=== PATIENT | female | born 1980 | race Caucasian/White ===

== ENCOUNTER 2021-02-09 08:22 | Outpatient (CLI) | payer OTHER, SELFPAY ==
[2021-02-09 09:08] LABS: Basophils Percent Auto 0.4 % (0.2-1.2); Eosinophils Absolute Auto 0.1 K/mm3 (0-0.3); Eosinophils Percent Auto 1.8 % (0-4.4); Hematocrit 39.4 % (37.0-47.0); Hemoglobin 12.8 g/dL (12.0-15.0); Immature Granulocyte Absolute 0.02 K/mm3 (0.00-0.031); Immature Granulocyte Percent A 0.4 % (0-0.5); Lymphocytes Absolute Auto 1.32 K/mm3 (0.9-3.2); Lymphocytes Percent Auto 26.1 % (18.3-44.2); Mean Corpuscular HGB Conc 32.5 g/dl (32-36); Mean Corpuscular Hemoglobin 28.6 pg (26-34); Mean Corpuscular Volume 88.1 fl (80-100); Mean Platelet Volume 10.4 fl (7.4-10.4); Monocytes Absolute Auto 0.5 K/mm3 (0.1-0.6); Monocytes Percent Auto 9.9 % (2.6-8.5); Neutrophils Absolute Auto 3.1 K/mm3 (1.3-6.7); Neutrophils Percent Auto 61.4 % (45.5-73.1); Platelet Count Result 206 k/mm3 (150-375); Red Blood Count 4.47 M/mm3 (4.2-5.4); Red Cell Distribution Width 12.7 % (11.5-14.5); White Blood Count 5.1 K/mm3 (4.5-10.0)
[2021-02-09 09:22] LABS: Anion Gap 7 mmol/L (8-16); Blood Urea Nitrogen 9 mg/dL (7-17); Calcium 9.3 mg/dL (8.4-10.2); Carbon Dioxide 27 mmol/L (22-30); Chloride 105 mmol/L (98-107); Cholesterol 163 mg/dL (0-200); Estimated Glomerular Filt Rate > 60; Glucose 91 mg/dL (65-110); HDL Direct 46 mg/dL; Sodium 139 mmol/L (137-145); Triglycerides 125 mg/dL (<150)
[2021-02-09 09:33] LABS: LDL Cholesterol Direct 68 mg/dL
== END 2021-02-09 08:23 | disposition home or self-care (01) ==
LOC: ANHLAB 08:24
PROVIDERS: PCP Family Medicine; Visit Provider Physician Assistant Medical
DX: R00.2 Palpitations (principal); Z13.220 Encounter for screening for lipoid disorders; Z13.1 Encounter for screening for diabetes mellitus
CPT/HCPCS: 36415; 80048; 80061; 84443; 85025

== ENCOUNTER 2022-05-12 17:32 | Outpatient (CLI) | payer OTHER, SELFPAY ==
[2022-05-12 18:27] LABS: Anion Gap 12 mmol/L (8-16); Blood Urea Nitrogen 8 mg/dL (7-17); Calcium 9.6 mg/dL (8.4-10.2); Carbon Dioxide 28 mmol/L (22-30); Chloride 99 mmol/L (98-107); Cholesterol 171 mg/dL (0-200); Estimated Glomerular Filt Rate > 60; Glucose 93 mg/dL (65-110); HDL Direct 57 mg/dL; Potassium 3.6 mmol/L (3.4-5.0); Sodium 139 mmol/L (137-145); Triglycerides 92 mg/dL (<150)
[2022-05-12 18:37] LABS: LDL Cholesterol Direct 77 mg/dL
[2022-05-12 20:20] LABS: Appearance Urine Clear (Clear); Bilirubin Urine Negative (Negative); Blood Urine Trace-intact (Negative); Color Urine Yellow (Yellow); Glucose Urine UA Negative (Negative); Ketones Urine Negative (Negative); Leukocyte Esterase Ur Negative LEU/UL (Negative); Nitrate Urine Negative (Negative); Protein Urine Negative (Negative); Urobilinogen Urine 0.2 mg/dL (<2.0)
[2022-05-12 20:29] LABS: Mucus Urine Rare /lpf; RBC Urine 0-2 /hpf (0-2); WBC Urine 0-3 /hpf
[2022-05-12 20:31] LABS: Add Urine Microscopic? YES
[2022-05-13 14:47] LABS: Rapid Plasma Reagin Non-Reactive (NonReactive)
== END 2022-05-12 17:33 | disposition home or self-care (01) ==
LOC: ANHLAB 17:33
PROVIDERS: PCP Family Medicine; Visit Provider Nurse Practitioner Family
DX: Z13.220 Encounter for screening for lipoid disorders (principal); Z13.1 Encounter for screening for diabetes mellitus; N89.8 Other specified noninflammatory disorders of vagina; Z13.29 Encounter for screening for other suspected endocrine disorder
CPT/HCPCS: 36415; 80048; 80061; 81001; 84443; 86592; 87491; 87591; 87661

== ENCOUNTER 2022-10-01 15:29 | Outpatient (CLI) | payer OTHER, SELFPAY ==
--- NOTE | ~2022-10-01 | US_ITS ---
EXAMINATION: US abdomen complete DATE: 10/01/2022 16:23 INDICATION: Intra-abdominal and pelvic swelling. TECHNIQUE: Multiple grayscale and Doppler ultrasound images of the abdomen were obtained. COMPARISON: None FINDINGS: Abdominal aorta is normal in caliber. Inferior vena cava is normal. The visualized portions of the head, body, and tail of the pancreas are normal. The liver is normal without focal lesion. Th ere is normal flow in main portal vein. The gallbladder is absent. The common duct is normal and juliette ures 6 mm. The kidneys are normal in size. The spleen is normal in size. IMPRESSION: 1. Normal complete abdomen ultrasound status post cholecystectomy. Reviewed, dictated and finalized at location A.
--- NOTE | ~2022-10-01 | US_ITS ---
EXAMINATION: US soft tissue abdomen DATE: 10/01/2022 16:23 INDICATION: Intra-abdominal and pelvic swelling. TECHNIQUE: Multiple grayscale and Doppler ultrasound images of the abdomen were obtained. COMPARISON: None FINDINGS: In the left upper quadrant, there is an incisional hernia, likely containing fat. IMPRESSION: 1. Incisional hernia in the left upper quadrant, likely containing fat. Reviewed, dictated and finalized at location A.
[2022-10-01 16:25] LABS: Basophils Percent Auto 0.6 % (0.2-1.2); Eosinophils Absolute Auto 0.1 K/mm3 (0-0.3); Eosinophils Percent Auto 0.8 % (0-4.4); Hematocrit 38.8 % (37.0-47.0); Hemoglobin 12.8 g/dL (12.0-15.0); Immature Granulocyte Absolute 0.02 K/mm3 (0.00-0.031); Immature Granulocyte Percent A 0.3 % (0-0.5); Lymphocytes Absolute Auto 1.75 K/mm3 (0.9-3.2); Lymphocytes Percent Auto 28.1 % (18.3-44.2); Mean Corpuscular Hemoglobin 30.2 pg (26-34); Mean Corpuscular Volume 91.5 fl (80-100); Mean Platelet Volume 9.7 fl (7.4-10.4); Monocytes Absolute Auto 0.6 K/mm3 (0.1-0.6); Monocytes Percent Auto 9.2 % (2.6-8.5); Neutrophils Absolute Auto 3.8 K/mm3 (1.3-6.7); Platelet Count Result 217 k/mm3 (150-375); Red Blood Count 4.24 M/mm3 (4.2-5.4); Red Cell Distribution Width 12.4 % (11.5-14.5); White Blood Count 6.2 K/mm3 (4.5-10.0)
[2022-10-01 16:44] LABS: Alanine Aminotransferase 17 U/L (6-35); Albumin Level 4.9 g/dL (3.5-5.1); Alkaline Phosphatase 78 U/L (38-126); Anion Gap 9 mmol/L (8-16); Aspartate Amino Transferase 24 U/L (14-36); Bilirubin,Total 0.5 mg/dL (0.2-1.3); Blood Urea Nitrogen 10 mg/dL (7-17); Carbon Dioxide 28 mmol/L (22-30); Chloride 103 mmol/L (98-107); Estimated Glomerular Filt Rate > 60; Glucose 90 mg/dL (65-110); Sodium 140 mmol/L (137-145)
== END 2022-10-01 15:30 | disposition home or self-care (01) ==
LOC: ANHIMG 15:31
PROVIDERS: PCP Family Medicine; Visit Provider Physician Assistant Medical
DX: R19.00 Intra-abdominal and pelvic swelling, mass and lump, unspecified site (principal); K43.2 Incisional hernia without obstruction or gangrene
CPT/HCPCS: 36415; 76700; 76705; 80053; 85025

== ENCOUNTER 2022-11-19 02:16 | Day surgery (SDC) | payer OTHER, SELFPAY ==
[2022-11-11 12:58] VITALS: BMI 22.4
--- NOTE | 2022-11-11 13:07 | PC.NURSE ---
Report to the Outpatient Waiting Room, entrance under the green pavilion located off [facility], at time 0600 on date 11/19/22. Planned Procedure Time: 0730. Time changes happen often and if your time is changed the preop area will call you the afternoon before. - You and your visitor will be asked to self-screen and do not enter if you have any COVID symptoms. - A mask is optional within the hospital at this time. Patients may have clear liquids (water, carbonated beverages, clear teas, apple juice) until 3 hours prior to surgery with a maximum of 20 ounces. - No food from midnight until time of surgery - Infants may have breast milk until 4 hours before surgery, formula 6 hours prior to surgery. - Children will be allowed to drink immediately following surgery. If applicable, please bring a bottle or sippy cup to assist with drinking. Juice, water, soda, and popsicles are readily available. For infants on formula, please bring formula the day of surgery. Pacifiers are allowed. Take the following medications with a SIP of water the morning of surgery: N/A DO NOT STOP ANY OF YOUR OTHER PRESCRIPTION MEDICATIONS PRIOR TO SURGERY EXCEPT THE FOLLOWING Medications to discontinue per physician: N/A Date to take last dose: N/A Please no make-up, nail malaysian, hairspray, perfume, deodorant, or body powder the day of surgery. No jewelry (including any body piercings) or valuables the day of surgery, leave them at home. Please take a shower or bath the night before, or the morning of, surgery with an antibacterial soap (HIBICLENS). Wear comfortable, loose fitting clothing. - Jewelry must be removed prior to entering the operating room. Rings and piercings that are not removed may be cut off. - The hospital will not accept responsibility for valuables. - Please leave all valuables, including medications, at home the day of surgery. If you are going home after surgery, a licensed wagon driver must drive you home. - NO public transportation without another adult if you receive anesthesia. - We recommend that an adult stay with you for 24 hours following discharge. - We also recommend that you do not drive, make important decision, drink alcoholic beverages, or take any drugs that were not prescribed by your health care provider for at least 24 hours after your discharge time. Follow any additional instructions given to you from your surgeon. If you or anyone in your household have experienced Covid symptoms in the past week, please notify your surgeon or the nurse liaison at the phone number below for possible testing. Telephone instructions given to DAVID LYNNE and asked if any additional questions and then verbalized understanding. Patient advised to call surgeon office or pre surgery nurse liaison [phone] if any additional questions.
--- NOTE | 2022-11-18 11:03 | PM.SD2 ---
Same Day Admit/Disch: HPI History of Present Illness Chief complaint: Incisional Hernia Narrative: Lindsey Burdick is a 42 year old female who had a laparoscopic cholecystectomy about 15 years ago. She noticed a tender bulge in the left upper abdomen. She was seen in the office and found to have a subcutaneous mass, about 2 cm in diameter, about senior living between the xiphoid and the umbilicus slightly to the left of midline. She had an ultrasound of the abdomen showed this was an incisional hernia. She is taken to surgery now for robotic laparoscopic repair with mesh. 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 Gender identity (if verbalized by the patient): Female Sexual Orientation (if Verbalized by the Patient): Straight or Heterosexual Spiritual care concerns: No Agree to blood products: Yes Same Day Admit/Disch: Med Pre-admit Medications Home Medications Medication Instructions Recorded Confirmed Type diphenhydramine 25 1 tablet PO QHS PRN Sleep 02/06/21 11/19/22 History mg-acetaminophen 500 mg tablet (Tylenol PM Extra Strength) ketorolac 10 mg tablet 10 mg PO Q6H 4 days #16 tabs 11/19/22 Rx oxycodone-acetaminophen 5 mg-325 0.5 - 1 tablet PO Q6H PRN pain #14 11/19/22 Rx mg tablet tabs Exam Const: General: comfortable, no acute distress, alert and awake HENMT: Head: normocephalic and atraumatic Mouth: Yes Normal oral and palatal mucosa present Eyes: Conjunctivae: conjunctivae normal Pupils: Equal, round and reactive pupils present EOM: EOMs intact bilaterally Neck: Neck: normal visual inspection, no lymphadenopathy and nontender Resp: Effort & Inspection: normal respiratory effort Auscultation: clear to auscultation bilaterally Cardio: Rate: regular rate Rhythm: regular rhythm Heart sounds: no gallops, no murmurs and no rubs GI: Inspection: non-distended and no visible herniation GI Palp: Yes Soft to palpation, No Tenderness to palpation present (GI), No Hepatomegaly present, No Splenomegaly present and Yes Hernia present (Non reducible subcutaneous mass hypogastric area, nontender) Skin: Lesions: no lesions Rashes: no rashes Neuro: General: no focal motor deficits and CN's II-XI intact bilaterally Cranial nerves: Yes Equal, round and reactive pupils present, Yes Bilaterally intact EOM present, Yes facial symmetry and Yes Midline tongue present Speech: normal speech Motor exam (neuro): 5/5 motor strength present throughout and Motor abnormalities not present Extrem: General: no clubbing, cyanosis or edema and edema Psych: Affect: normal affect Thought process: Normal thought process present Insight: Good insight present (Psych) DS: Summary Time Spent with Patient Time attestation: Total time spent providing and/or coordinating discharge services: DS: Admitting Diagnosis Discharge Date 11/19/2022 Admitting Diagnosis Incisional hernia-plan to repair with robotic laparoscopic technique using mesh. The procedure the risks the benefits and the usual recovery have been discussed with the patient. All questions were answered. She understand
--- NOTE | 2022-11-18 14:33 | WPDANESEPPF ---
Anes - Initial Pre Proc Eval Procedure: Operation Date: 11/19/22 07:30 Proposed Procedures p Robotic Assisted Laparoscopic Incisional Hernia Repair - Ivan Walker MD Date/Time: 11/18/22 14:33 Surgeon: Ivan Walker MD Pre Op Diagnosis: Incisional Hernia Patient Data Age: 42 Gender: F Height: 1.65 m Weight: 61.25 kg Allergies Allergy/AdvReac Type Severity Reaction Status Date / Time No Known Allergies Allergy Verified 11/19/22 06:08 Home Medications Medication Instructions Recorded Confirmed Type diphenhydramine 25 1 tablet PO QHS PRN Sleep 02/06/21 11/19/22 History mg-acetaminophen 500 mg tablet (Tylenol PM Extra Strength) Patient hx anesthesia problems: post op nausea/vomiting Family hx anesthesia problems: none Results Review: All pre-operative results and documents have been reviewed as part of the pre-operative evaluation. [facility] Past Medical History Medical History BMI 27.0-27.9,adult Surgical History Surgical History delivery w/o mention of indication, deliv, curr hospitaliz History of cholecystectomy Family History Family History Father Diabetes mellitus Hypertension Acute myocardial infarction Social History Social History Smoking status: Never smoker Alcohol intake: current Drinks per week: 1 Alcohol use details: RARE Substance use: never Substance use type: does not use Living arrangements: with family Additional living arrangements comments: and kids Occupation/Education: occupation 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 Gender identity (if verbalized by the patient): Female Sexual Orientation (if Verbalized by the Patient): Straight or Heterosexual Spiritual care concerns: No Agree to blood products: Yes Anes - Eval Final PreProcedure Day of Procedure 11/18/22 14:33 Patient weight: normal Heart: regular rate and rhythm Lungs: clear to auscultation Airway: Mallampati scale class II Neurological: alert and oriented Last oral intake: >/= 8 hours ASA classification: I Emergent: no Anesthetic plan: proceed Anesthesia type and monitoring: general ETT and standard monitoring Results Review: All pre-operative results and documents have been reviewed as part of the pre-operative evaluation. Informed Consent: The patient's anesthetic plan and its attendant risks and benefits were discussed with the patient/family/POA. Questions were solicited and answers provided to the satisfaction of the patient/family/POA.
[2022-11-19] VITALS (16 sets, daily range): BP systolic 97–118; BP diastolic 46–77; PULSE 72–88; RESP 12–20; TEMP 36.4–36.7; O2SAT 94–100
[2022-11-19] MEDS: ACETAMINOPHEN 500 MG TABLET 1000 MG PO (06:24)
[2022-11-19] MEDS: LACTATED RINGERS 1,000 ML 30 ML IV CONT ×2 (06:25→09:21)
[2022-11-19] MEDS: KETOROLAC 15 MG/ML VIAL (*BKC) IV PUSH (06:42)
--- NOTE | 2022-11-19 07:12 | WPDHPUPDATE1 ---
History and Physical Update Update Date/Time: 11/19/22 07:12 History and Physical has been reviewed, including an updated exam of the patient. There are NO changes in the patient's condition. Risks, benefits, and alternatives have been discussed and questions answered. Patient agrees to proceed with procedure.
[2022-11-19] MEDS: ceFAZolin 2 GM/D5W 50 ML 2 GM/50 ML BAG IVPB (07:25)
[2022-11-19] MEDS: BUPIVACAINE/EPINEPHRINE 0.5% 50 ML VIAL 30 ML INFILTRATE (08:10)
[2022-11-19] MEDS: fentaNYL CITRATE INJ (*CRX) 100 MCG/2 ML VIAL 25 MCG IV PUSH ×5 (09:36→09:56)
--- NOTE | 2022-11-19 09:36 | W.PM.PROC2 ---
Procedure Note - Detailed Date of Procedure 11/19/22 Pre-op Diagnosis Incisional Hernia Post-op Diagnosis Same Procedure Performed Robotic laparoscopic repair 5.5 cm incisional hernia with mesh Surgeon Ivan Walker MD Supervisor Modern Languages Sanjeev HOYOS Anesthesia General and Local (0.5% Marcaine with epinephrine) Indications Patient had a previous laparoscopic cholecystectomy. She developed a painful subcutaneous mass in the hypogastric area near a laparoscopic trocar scar. Examination as well as ultrasound showed this to be an incisional hernia. She is taken to surgery now for robotic laparoscopic repair with mesh Findings The hernia defect itself was 2 x 2 cm. There were, caudally located, other small hernia defects near the palpable hernia. The distance between the lower most of these hernia defects and the original defect was 5.5 cm. Fortunately they were pretty much in a line in the linea alba with width of only 2 cm total. A 10 x 15 cm mesh was suitable for repair. Description of Procedure The patient was taken to the operating room and induced into general anesthesia. The site of the hernia defect had been marked on the skin preoperatively. It was about half way between the umbilicus and the xiphoid process. The abdomen was prepped and draped. Trocars were planned in the left lower quadrant in the line at least 15 cm from the hernia defect. Local was infiltrated and a small incision made. The varies needle was introduced and saline drop technique was used to verify intraperitoneal location. Insufflation was carried out. With the abdomen distended, of 5 mm optical port was then placed in this location. This verified intraperitoneal location and the hernia defect was able to be seen. Under direct visualization, an 8 mm robotic port was placed to the patient's right of the original port. The camera was then switched to this location. The 5 mm port was changed out for a robotic 8 mm port. Finally the left most lateral port was placed which was also an 8 mm robotic port. The robotic arms were then brought into the field and positioned appropriately. The camera port was docked and the camera positioned. The camera was then targeted. The other 2 ports were docked and positioned. The surgeon then went to the robotic console. Dissection was carried out by 1st reducing the herniated falciform ligament in the defect. Once this was reduced, dissection was carried out to incise the peritoneum near the edge of the hernia. We then reduced the falciform ligament and exposed the edges of the hernia defect. In reducing the falciform ligament, some other hernia defects caudal to the original clinically evident hernia were found. The distance between the lowermost of these hernia defects and the original hernia was 5.5 cm. There were fortunately an a line that was no more than 2 cm in with. After freeing the falciform ligament so that the peritoneum was exposed for hernia closure and mesh placement, an 0 V lock suture was introduced. This was used to close the hernia defect in transverse orientation. A 15 x [address] mesh was then introduced into the field. The OV lock suture was passed through the center of the mesh and the mesh was brought up to the abdominal wall so that it was flush and oriented appropriately with the long access of the mesh in a cranial caudad orientation. The 0 V lock suture was then used to suture the lower half of the mesh to the anterior midline so that it would not obscure my view as I secured the remainder of the mesh. Two 0 V lock was then introduced into the field. Starting in the left somewhat cephalad position, we began running the 2 0 V lock circumferentially around the mesh to secure it to the abdominal wall. This process was continued using to more of the 2 ov locks until the entire circumference of the mesh was secured to the abdominal wall with running suture. The mesh was in good position and repair looked q
[2022-11-19] MEDS: HYDROmorphone HCL INJ (*CRX) 1 MG/ML SYR 0.5 MG IV PUSH ×6 (10:03→10:54)
--- NOTE | 2022-11-19 13:12 | SUR.PHASEII ---
1345: patient stable. VSS. Iv dc'd. Getting dressed. family in room.
== END 2022-11-19 13:17 | disposition home or self-care (01) ==
PROVIDERS: PCP Family Medicine; Visit Provider Surgery
PROC: (CPT 49593; principal; 2022-11-19 07:30)
DX: K43.2 Incisional hernia without obstruction or gangrene (principal)
CPT/HCPCS: 49593; S2900; 36415; 86850; 86900; 86901; A9270; C1781; J0690; J1100; J1170; J1885; J2250; J2405; J2704; J3010; J7030; J7120